=== PATIENT | female | born 1990 | race Caucasian/White ===

== ENCOUNTER 2023-07-05 09:04 | Outpatient (AMB) | payer OTHER, SELFPAY ==
[2023-07-05 09:09] VITALS: BP 128/72; PULSE 74; RESP 13; O2SAT 96; BMI 30.5
--- NOTE | 2023-07-05 09:09 | A.OFFPC_ITS ---
Vital Signs 07/05/23 09:09 Height 5 ft 3 in Weight 172 lb BMI 30.5 BP 128/72 Blood Pressure Location Rt brachial Position Sitting Respiration 13 Pulse 74 Pulse Source Pulse Oximeter Pulse Oximetry (%) 96 Oxygen Delivery Method Room Air Intake Visit Reasons: GIS PROGRAMMER-Thyroid/BP Intake Note: Patient is here today to establish care. Patient was previously seen by Lyric Alvarado in [place], [place] (possibly [place]). Patient reports she has signed an JOSHUA with her previous provider and will sign another JOSHUA with our office today. Patient reports she has concern for her weight, blood work, and feeling sick for 2 months around the same time of year. Patient reports she does have depression and anxiety, however she see's a therapist to help her with her depression and anxiety. Outdoor Emergency Care Technician Required: No Accompanied by: Self / Same As Patient Allergies No Known Allergies Allergy (Verified 07/05/23 09:38) Medication List - Last Reconciled 07/05/23 by Porfirio Simms CNP No Known Home Meds Tobacco use date assessed: 07/05/23 Dental Screening Dental Screen Date: 07/05/23 Did you have a dental visit in the last 12 months?: No Did you have a dental problem in the last 6 months where you did not have access to dental care?: No Was dental information given to patient?: Yes HPI HPI Comments History of Present Illness Details 33-year-old female presents to establish care She was last evaluated by her former PCP at [facility] and had routine blood work done a year She has PMH significant for hypertension, hyperlipidemia, asthma, eczema, ADHD, anxiety, and depression. She took an antihypertensive for six month and weaned off 3 years ago due to normal BP readings. She states she was on Adderall for ADHD which she stopped taking several years ago. She has not been prescribed medication for anxiety and depression. She currently sees a therapist for her mood every week. She notes that her asthma is sport-induced and she plays soft ball an usually experiences SOB and wheezing. She notes that her asthma symptoms were well controlled when she quit smoking 10 years ago and stopped using an inhaler. She notes that she has been smoking cigarette on/off for the past 18 years. She will quit for a week or 2 and would resume smoking. She has been smoking half a pack of cigarette daily for the past 5 years. She drinks 4-5 beers and a couple of nips (occasionally) 3 times weekly. She has been drinking for the past 5 years. She notes that she stopped drinking the whole of May this year. 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 She reports h/o cocaine use but denies current recreational drug use. She notes that she stopped taking Adderall because she was using more cocaine while on the medication. She notes that she is sexually active, in a monogamous relationship, and has no concern for STD. She states that her last pap smear was almost a year ago: normal. She is due for another PAP smear test next month. She states that she had non malignant biopsy and annual testing was recommended. [facility] Medical History (Updated 07/05/23 @ 10:32 by Porfirio Simms CNP) Eczema High blood cholesterol Hypertension Asthma Anxiety Depression Surgical History (Updated 07/05/23 @ 09:33 by Yun Lala CMA) History of repair of ACL Family History (Updated 07/05/23 @ 09:40 by Yun Lala CMA) Mother Alcoholism High cholesterol Hypertension Father Hypertension High cholesterol Diabetes Alcoholism Unknown Diabetes Alcoholism Social History (Updated 07/05/23 @ 09:22 by Yun Lala CMA) Household Members: Significant Other and Family Housing: House Alcohol intake: current Alcohol intake frequency: a few times a week Alcohol type: beer and hard liquor Patient Tobacco Use Status: Current everyday Tobacco user Tobacco use type: Cigarette Cigarette Packs Per Day: 0.5 Cigarettes Per Day: 10 Years Smoked: 21 years inconsistently e-Cigarette/Vaping Use: Currently Using Substance Use Type: Crack/Cocaine service: No Current occupational status: employed Current occupation: [employer] Current occupational exposures/hazards: Yes Sexual orientation: Unable to collect Gender identity: Unable to collect Cognitive needs: No Hearing needs: No Vision needs: No Questionnaire PHQ-9 Over the last 2 weeks, how often have you been bothered by any of the following problems? 1. Little interest or pleasure in doing things: not at all 2. Feeling down, depressed, or hopeless: several days 3. Trouble falling or staying asleep, or sleeping too much: several days 4. Feeling tired or having little energy: several days 5. Poor appetite or overeating: more than half the days 6. Feeling bad about yourself - or that you are a failure or have let yourself or your family down: not at all 7. Trouble concentrating on things, such as reading the newspaper or watching television: nearly every day 8. Moving or speaking so slowly that other people could have noticed. Or the opposite - being so fidgety or restless that you have been moving around a lot more than usual: not at all 9. Thoughts that you would be better off or of hurting yourself in some way: not at all Total score: 8 Depression Screening Interpretation: Positive (Has a therapist) Depression Screening Follow-up: In treatment Depression Screening Done: Yes 50465 - PHQ-9 Billing: Yes Source: Developed by Drs. Loco Solano, Lavonne Smith, Timi Dowling and colleagues, with an educational hannah from [email or web address]. Thrive Questionnaire Date Thrive assessed: 07/05/23 I am a: Patient What is your living situation today?: I have a steady place to live Within the past 12 months, did the food you bought not last and you didn't have the money to get more?: Never true Within the past 12 months, did you worry whether your food would run out before you got money to buy more?: Never true Do you have trouble paying for medicines?: No Do you have trouble getting transportation to medical appointments?: No Do you have trouble paying your heating and electricity bill?: No Do you have trouble taking care of your child, family member or friend?: No Do you have trouble with day-to-day activities such as bathing, preparing meals, shopping, managing finances, etc.?: No Are you currently unemployed and looking for a job?: No Are you interested in more education?: No Please select the resources that you would like help with: None Currently or been in a relationship where the following occur: no concerns reported AUDIT C Alcohol Use Questionnaire (AUDIT-C) 1. How often do you have a drink containing alcohol?: 2-3 times a week 2. How many drinks containing alcohol do you have on a typical day when you are drinking?: 3 or 4 3. How often do you have six or more drinks on one occasion?: Monthly Total Score: 6 CHRIS-7 AMB Questionnaire CHRIS-7 Date CHRIS - 7 assessed: 07/05/23 Feeling nervous, anxious, or on edge: 0 = Not at all Not being able to stop or control worryin = Not at all Worrying too much about different things: 0 = Not at all Trouble relaxin = Several days Being so restless that it is hard to sit still: 0 = Not at all Becoming easily annoyed or irritable: 1 = Several days Feeling afraid as if something awful might happen: 0 = Not at all Total CHRIS-7 score (0-4 normal; 5-9 mild; 10-14 moderate; 15-21 severe): 2 Source: Developed by Drs. Loco Solano, Lavonne Smith, Timi Dowling and colleagues, with an educational hannah from [email or web address]. CHRIS-7 Assessment Billing CHRIS-7 Assessment Tool: CHRIS-7 Assessment 35294 ACT Questionnaire In the past 4 weeks, how much of the time did your asthma keep you from getting as much done at work, school or at home?: A little of the time During the past 4 weeks, how often have you had shortness of breath?: More than once a day During the past 4 weeks, how often did your asthma symptoms wake you up at night or earlier than usual in the morning?: 2-3 nights a week During the past 4 weeks, how often have you had to use your rescue inhaler or nebulizer medication?: Not at all (Doesnt have one) How would you rate your asthma control during the past 4 weeks?: Not controlled at all ACT Interpretation: Positive Score: 13 Physical exam (Primary Care) Vital Signs: Last Vital Signs Pulse 74 07/05/23 09:09 Resp 13 07/05/23 09:09 BP 128/72 07/05/23 09:09 Pulse Ox 96 07/05/23 09:09 Oxygen Delivery Method Room Air 07/05/23 09:09 BMI result Body Mass Index 30.5 Tobacco/Smoking Status: Tobacco use Status Tobacco use date assessed 07/05/23 07/05/23 09:27 Patient Tobacco Use Status Current everyday Tobacco 07/05/23 09:27 Tobacco use type Cigarette 07/05/23 09:27 e-Cigarette/Vaping Use Currently Using 07/05/23 09:27 PHQ-9: PHQ-9 Score PHQ-9: Total score 8 07/05/23 09:37 Depression Screening Interpretation: Positive (Has a therapist) Depression Screening Follow-up: In treatment Thrive Assessment: Date of Thrive Assessment Date Thrive assessed 07/05/23 07/05/23 09:27 Currently or been in a relationship where the following occur: no concerns reported Assessment and Plan Assessment & Plan (1) Normal physical examination, routine: Code(s): Z00.00 - Encounter for general adult medical examination without abnormal findings Plan: No significant physical restrictions or limitations noted Advised to get routine fasting blood work done and schedule a telehealth visit for labs review Return with symptoms or concerns Verbalized understanding and agreed with treatment plan (2) Hypertension: Code(s): I10 - Essential (primary) hypertension Qualifiers: Hypertension type: primary hypertension Qualified Code(s): I10 - Essential (primary) hypertension Plan: She reports history of hypertension and notes she took an antihypertensive for six month and weaned off 3 years ago due to normal BP readings BP is 128/72, within goal of less than 140/90 Low-sodium diet encouraged Will continue to monitor Verbalized understanding and agreed with treatment plan. (3) Asthma: Code(s): J45.909 - Unspecified asthma, uncomplicated Plan: She reports history of sports-induced asthma. She experiences shortness of breath and wheezing while playing softball ACT score is 13 and reveals poorly control asthma Lung sounds clear and equal bilaterally Albuterol inhaler ordered. Use as prescribed Follow-up with worsening or new symptoms Verbalized understanding and agreed with treatment plan. (4) High blood cholesterol: Code(s): E78.00 - Pure hypercholesterolemia, unspecified Plan: Reports history of hyperlipidemia. Not on medication Lipid panel ordered. Will review results and make changes to her care plan if warranted Advised to limit foods high in saturated fat and avoid foods high trans fat Routine exercise encouraged Verbalized understanding and agreed with treatment plan (5) Depression: Code(s): F32.A - Depression, unspecified Plan: She reports history of ADHD, anxiety, and depression. She has never been on medications for anxiety and depression. She was on Adderall for ADHD but stopped taking the medication several years ago due to increased cocaine abuse. She is currently seeing a therapy weekly with improvements of her symptoms. She states she does not need medication treatment at this time. PHQ-9 score reveals mild depression. CHRIS-7 score is normal Advised to continue weekly therapy Routine exercise encouraged Follow-up with worsening or new symptoms Verbalized understanding and agreed with treatment plan. (6) Anxiety: Code(s): F41.9 - Anxiety disorder, unspecified Plan: As above (7) ADHD: Code(s): F90.9 - Attention-deficit hyperactivity disorder, unspecified type Plan: As above (8) Smoking 1/2 pack a day or less: Code(s): F17.210 - Nicotine dependence, cigarettes, uncomplicated Plan: She notes that she has been smoking cigarette on/off for the past 18 years. She will quit for a week or 2 and would resume smoking. She has been smoking half a pack of cigarette daily for the past 5 years. She states that her therapist is also addressing her smoking issues. However, she is not currently motivated to quit. She notes that she would quit when she is ready to do so. Declines medication treatment for smoking cessation. Instructed on the health risks and complications of cigarette smoking. Smoking cessation encouraged. Advised to inform her PCP if she changes her mind about medication treatment for smoking cessation. Continue to follow-up with therapist as planned. Verbalized understanding and agreed with treatment plan. (9) Alcohol dependence: Code(s): F10.20 - Alcohol dependence, uncomplicated Plan: She drinks 4-5 beers and a couple of nips (occasionally) 3 times weekly. She has been drinking for the past 5 years She states that her therapist also addresses her alcohol issues. However, she is not currently motivated to stop. She notes that she would stop when she is ready to do so. Declines referral to addiction medicine. Instructed on the health risks and complications of excessive alcohol intake. Encouraged to limit or stop drinking alcohol. Advised to inform her PCP if she changes her mind about referral to addiction medicine. Continue to follow-up with therapist as planned. Verbalized understanding and agreed with treatment plan. (10) Laboratory tests ordered as part of a complete physical exam (CPE): Code(s): Z00.00 - Encounter for general adult medical examination without abnormal findings Orders: Orders Lipid Panel Today Z00.00 - Encounter for general adult medical examination without abnormal findings TSH reflex Free T4 Today Z00.00 - Encounter for general adult medical examination without abnormal findings Complete Blood Count Auto Diff Today Z00.00 - Encounter for general adult medical examination without abnormal findings Comprehensive [place]. Panel Fast Today Z00.00 - Encounter for general adult medic al examination without abnormal findings UA CC w/rflx Micro + Cult Today Z00.00 - Encounter for general adult medical examination without abnormal findings Medications: New albuterol sulfate 90 mcg/actuation 2 puffs inhalation Q4-6H PRN 8.5 grams 3RF shortness of breath or wheezing Patient Instructions: Fasting labs ordered as part of a complete physical exam. Advised to fast for at least 10 hours before getting labs drawn. May drink water Verbalized understanding and agreed with treatment plan. Coding Level of Care Code New Pt Level 3 (01092) New Pt Prev Care 18-39yr([id number] Diagnoses Normal physical examination, routine Z00.00 Primary hypertension I10 Hypertension type: primary hypertension Asthma J45.909 High blood cholesterol E78.00 Depression F32.A Anxiety F41.9 ADHD F90.9 Smoking 1/2 pack a day or less F17.210 Alcohol dependence F10.20 Laboratory tests ordered as part of a complete physical exam (CPE) Z00.00 Additional Codes CHRIS-7 Assessment Billing - CHRIS-7 Assessment Tool: CHRIS-7 Assessment 03309 ([id number])
== END 2023-07-05 10:15 | disposition home or self-care (01) ==
PROVIDERS: PCP Nurse Practitioner Family; Visit Provider Nurse Practitioner Family
DX: Z00.00 Encounter for general adult medical examination without abnormal findings (principal); I10 Essential (primary) hypertension; J45.909 Unspecified asthma, uncomplicated; E78.00 Pure hypercholesterolemia, unspecified; F32.A Depression, unspecified; F41.9 Anxiety disorder, unspecified; F90.9 Attention-deficit hyperactivity disorder, unspecified type; F17.210 Nicotine dependence, cigarettes, uncomplicated; F10.20 Alcohol dependence, uncomplicated
CPT/HCPCS: 96127; 99203; 99385

== ENCOUNTER 2023-07-22 09:38 | Outpatient (REF) | payer OTHER, SELFPAY ==
[2023-07-22 11:21] LABS: MANUAL DIFF FLAG NO
[2023-07-22 11:32] LABS: Basophils Absolute Auto 0.1 X10*3/uL (0.0-0.2); Basophils Percent Auto 0.6 % (0-2); Eosinophils Absolute Auto 0.7 X10*3/uL (0.0-0.4); Eosinophils Percent Auto 6.3 % (0-4); Hematocrit 47.8 % (37.0-47.0); Hemoglobin 16.1 g/dl (12.0-16.0); Imm Gran Abs Auto 0.05 X10*3/uL (0.00-0.03); Imm Gran Pct Auto 0.4 % (0.0-0.4); Lymphocytes Absolute Auto 3.8 X10*3/uL (1.2-4.9); Lymphocytes Percent Auto 32.6 % (20-40); Mean Corpuscular HGB Conc 33.7 g/dl (31.0-35.0); Mean Corpuscular Hemoglobin 31.3 pg (27.0-33.0); Mean Corpuscular Volume 92.8 fL (80.0-98.0); Mean Platelet Volume 9.7 fL (9.4-12.3); Monocytes Absolute Auto 0.9 X10*3/uL (0.1-1.2); Monocytes Percent Auto 7.7 % (2-11); Neutrophils Percent Auto 52.4 % (45-73); Platelet Count 328 X10*3/uL (160-400); Red Blood Count 5.15 X10*6/uL (4.20-5.50); Red Cell Distribution Width 12.5 % (11.0-16.0); White Blood Count 11.5 X10*3/uL (4.8-10.8)
[2023-07-22 11:49] LABS: Appearance Urine Cloudy; Color Urine Dark Yellow; Glucose Urine UA Negative (Negative); Leukocyte Esterase Urine Negative (Negative); Nitrite Urine Negative (Negative); PH 5.5 (5.0-9.0); Specific Gravity - Urine 1.025 (1.005-1.025); Urine Blood Negative (Negative); Urine Ketones Negative (Negative); Urine Protein Negative (Neg-Trace)
[2023-07-22 12:02] LABS: Alanine Aminotransferase 28 U/L (0-31); Albumin Level 4.3 g/dL (3.5-5.0); Alkaline Phosphatase 83 U/L (39-117); Anion Gap 11 (12-20); Aspartate Amino Transferase 34 U/L (5-31); Bilirubin Total 1.7 mg/dL (0.0-1.0); Blood Urea Nitrogen 10 mg/dL (9-16); Carbon Dioxide 27 mmol/L (22-29); Chloride 104 mmol/L (96-108); Cholesterol 198 mg/dL (<200); Estimated Glomerular Filt Rate > 60; Glucose Fasting 92 mg/dL (60-99); HDL Cholesterol 63 mg/dL (>40); LDL Cholesterol Calculated 83 mg/dL (<100); Potassium 4.2 mmol/L (3.3-5.1); Sodium 138 mmol/L (135-145); Total Protein 7.3 g/dL (6.5-8.0); Triglycerides 261 mg/dL (<150)
[2023-07-22 12:03] LABS: TSH reflex Free T4 2.55 uIU/mL (0.32-4.0)
== END 2023-07-22 09:39 | disposition home or self-care (01) ==
LOC: HO.WFDLDS 09:38
PROVIDERS: Visit Provider Nurse Practitioner Family
DX: Z00.00 Encounter for general adult medical examination without abnormal findings (principal); Z86.711 Personal history of pulmonary embolism
CPT/HCPCS: 36415; 80053; 80061; 81003; 84443; 85025